=== PATIENT | female | born 1970 | race Hispanic/Latino ===

== ENCOUNTER 2018-03-02 22:05 | Emergency (ER) | payer OTHER ==
[~2018-03-02] VITALS: Ht 154.9 cm; Wt 62.1 kg
--- NOTE | 2018-03-03 00:55 | Diagnostic Imaging Report ---
History: Foreign body sensation in the throat, feels something is stuck in the throat, towards the right side. Comparison studies: None Technique: Axial images were obtained from the skull base to the thoracic inlet. Coronal and sagittal images reconstructed from the axial data. Dose modulation, iterative reconstruction, and/or weight based adjustment of the mA/kV was utilized to reduce the radiation dose to as low as reasonably achievable. Intravenous contrast: None Findings: Evaluation of the neck is limited due to the absence of intravenous contrast. In spite of this limitation, Soft tissues: The linear radiopaque foreign body that approximately measures 2 cm in length and 2 mm in thickness, in the inferior aspect of right palatine tonsil extending towards the right oropharyngeal mucosa. Smaller punctate radiopaque density in the anterosuperior aspect of right palatine tonsil. Airway is patent. Lymph nodes: No radiographically significant adenopathy. Vessels: Cannot evaluate. Glands (thyroid, parotid and submandibular): Normal in size and symmetric. No masses. Orbits: No abnormalities. Paranasal sinuses: Clear. Temporal bones: No abnormalities. Skull base and facial bones: Intact. Cervical spine: No abnormality. IMPRESSION: A linear radiopaque (possible metallic) 2 cm foreign body in the right palatine tonsils/oropharyngeal mucosa with a smaller punctate radiopaque density in the anterosuperior aspect of right palatine tonsil which may either represent tonsillolith or another smaller bit of foreign body. Findings were informed to ER physician Dr. Andrade by phone at 12:40 AM on 03/03/2018. Signed by: Dr. Loretta Gao M.D. on 03/03/2018 12:52 AM
[2018-03-03 03:48] VITALS: BP 131/70
== END 2018-03-03 03:53 | disposition short-term general hospital (02) ==
LOC: FSED 22:05
DX: T17.298A Other foreign object in pharynx causing other injury, initial encounter (principal); X58.XXXA Exposure to other specified factors, initial encounter
CPT/HCPCS: 70486; 99283